=== PATIENT | male | born 1990 | race Hispanic/Latino ===

== ENCOUNTER 2017-08-27 16:53 | Emergency (ER) | payer OTHER ==
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
[2017-08-27] MEDS ORDERED: LIDOCAINE 1% W/ EPINEPHRINE 20 ML VIAL INJ ONE (17:36)
[2017-08-27] MEDS ORDERED: CLINDAMYCIN HCL CAP 150 MG CAP PO ONE (17:37)
[2017-08-27] MEDS ORDERED: CLINDAMYCIN PHOSPHATE 150 MG/ML VIAL IM ONE (17:37)
[2017-08-27 18:31] VITALS: BP 130/73; TEMP 98.1; O2SAT 96
== END 2017-08-27 18:15 | disposition home or self-care (01) ==
LOC: ER 16:53
DX: K02.9 Dental caries, unspecified (principal); K04.01 Reversible pulpitis; E07.9 Disorder of thyroid, unspecified; K21.9 Gastro-esophageal reflux disease without esophagitis; Z87.891 Personal history of nicotine dependence; B19.20 Unspecified viral hepatitis C without hepatic coma

== ENCOUNTER 2017-09-10 19:50 | Emergency (ER) | payer OTHER ==
[2017-09-10] MEDS ORDERED: HYDROcodone 10MG/APAP 325MG 1 EA TAB PO ONE (20:55)
[2017-09-10] MEDS ORDERED: CLINDAMYCIN HCL CAP 150 MG CAP PO ONE (20:56)
--- NOTE | 2017-09-10 21:17 | ED.PDOC ---
History of Present Illness - General Chief Complaint: Dental/Mouth Stated Complaint: Toothache Left upper back tooth Time Seen by Provider: 09/10/17 20:12 Source: patient Exam Limitations: no limitations - History of Present Illness Initial Comments: MR CANALES COMES TO THE ED WITH SEVERE PAIN TO THE LEFT LOWER SECOND MOLAR. HE HAS BEEN HAVING PROBLEMS WITH HIS TEETH FOR SEVERAL YEARS. Timing/Duration: gradual EENT Location: dental Prearrival Treatment: over the counter meds Improving Factors: nothing Associated Symptoms: ear drainage, malaise, tooth pain Allergies/Adverse Reactions: Allergies Aripiprazole [From Abilify] Allergy (Verified 09/10/17 20:36) Ziprasidone [From Geodon] Allergy (Verified 09/10/17 20:36) Home Medications: Ambulatory Orders ALPRAZolam [Xanax] 0.5 mg PO BID 09/10/15 Levothyroxine Sodium [Synthroid] 0.112 mg PO 0700 09/10/15 Esomeprazole Magnesium [Nexium] 40 mg PO DAILY 03/09/16 Clindamycin HCl 300 mg PO BID #30 cap 08/27/17 Acetamin W/Cod #3 Tab [Tylenol w/CODEINE #3] 1 ea PO Q6HRS #20 tab 09/10/17 Clindamycin HCl 300 mg PO Q6HRS #40 cap 09/10/17 Review of Systems - Review of Systems Constitutional: States: see HPI, weakness EENTM: States: mouth pain Respiratory: States: no symptoms reported Cardiology: States: no symptoms reported Gastrointestinal/Abdominal: States: no symptoms reported Genitourinary: States: no symptoms reported Musculoskeletal: States: no symptoms reported Skin: States: no symptoms reported Neurological: States: no symptoms reported Endocrine: States: no symptoms reported Hematologic/Lymphatic: States: no symptoms reported All other Systems: Reviewed and Negative Past Medical History (General) - Patient Medical History Hx Seizures: Yes - Hx states long time ago-on no meds or under no doctor care at present Hx Stroke: No Hx Dementia: No Hx Asthma: No Hx of COPD: No Hx Cardiac Disorders: No Hx Congestive Heart Failure: No Hx Pacemaker: No Hx Hypertension: No Hx Thyroid Disease: Yes Hx Diabetes: No Hx Gastroesophageal Reflux: Yes Hx Renal Disease: No Hx Cancer: No Hx of HIV: No Hx Hepatitis C: Yes - states Hep C + Hx MRSA: No Surgical History: other - Vaccination History Hx Tetanus, Diphtheria Vaccination: Yes Hx Influenza Vaccination: Yes Hx Pneumococcal Vaccination: No - Social History Hx Tobacco Use: Yes Hx Chewing Tobacco Use: No Hx Alcohol Use: No Hx Substance Use: No Hx Substance Use Treatment: No Hx Depression: No Hx Physical Abuse: No Hx Emotional Abuse: No Hx Suspected Abuse: No - Female History Patient : No - Triage Comment ED Triage Comment: Presents to ER --POV--Amb.--C/O Left upper toothache back tooth--pt has very poor dental caries noted. States took Motrin 200mg PO at 1030 this morning fot pain with no relief. States pain is "10". Family Medical History - Family History Father Family History: Unknown Living Status: Unknown Physical Exam - Physical Exam General Appearance: Alert, Anxious, Ill Appearing Eye Exam: bilateral normal Ear Exam: bilateral ear: TM normal Nasal Exam: normal inspection Throat Exam: other - MULTIPLE CARIES, SECOND LEFT LOWER MOLAR WITH DEEP CAVITIES ON THE TOOTH. Departure - Departure Clinical Impression: Dental caries Disposition: Discharge to Home or Self Care Condition: Fair Departure Forms: ED Discharge - Pt. Copy, Patient Portal Self Enrollment Instructions: DI for Mouth Pain, DI for Dental Pain Activity: walking as tolerated Referrals: CHASIDY [facility],ALISSON Dmaon [Primary Care Provider] - 1-2 Weeks Prescriptions: Acetamin W/Cod #3 Tab [Tylenol w/CODEINE #3] 1 ea PO Q6HRS #20 tab Clindamycin HCl 300 mg PO Q6HRS #40 cap Home Medications: Ambulatory Orders ALPRAZolam [Xanax] 0.5 mg PO BID 09/10/15 Levothyroxine Sodium [Synthroid] 0.112 mg PO 0700 09/10/15 Esomeprazole Magnesium [Nexium] 40 mg PO DAILY 03/09/16 Clindamycin HCl 300 mg PO BID #30 cap 08/27/17 Acetamin W/Cod #3 Tab [Tylenol w/CODEINE #3] 1 ea PO Q6HRS #20 tab 09/10/17 Clindamycin HCl 300 mg PO Q6HRS #40 cap 09/10/17
[2017-09-10 21:49] VITALS: BP 157/90; TEMP 97.4; O2SAT 96
== END 2017-09-10 21:40 | disposition home or self-care (01) ==
LOC: ER 19:50
DX: K02.9 Dental caries, unspecified (principal); E07.9 Disorder of thyroid, unspecified; K21.9 Gastro-esophageal reflux disease without esophagitis; B19.20 Unspecified viral hepatitis C without hepatic coma; F17.200 Nicotine dependence, unspecified, uncomplicated; Z79.899 Other long term (current) drug therapy